=== PATIENT | female | born 1980 | race Caucasian/White ===

== ENCOUNTER 2018-06-17 15:21 | Emergency (ER) | payer SELFPAY ==
--- NOTE | 2018-06-17 15:51 | ED Physician Documentation ---
Lower Extremity Problem - HISTORIAN Historian: patient - HPI Stated Complaint: Right Knee Pain Chief Complaint: Lower Extremity Problem Additional Information: Right knee pain x 2 weeks. Denies injury. 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 Has been taking 800 mg ibuprofen BID which relieves pain, but it comes back. Has taken warm baths w/o relief. Hasn't seen anyone. Weight has been up and down, but thinks she has gained weight recently. Unknown LNMP as she says they have been irregular since her weight begn to fluctuate. Her provider is in [place]. No other modifying factors or as sociated signs. - ROS CONST: no problems GI/: other (irregular periods) - PAST HX Past History: other (above) PE Risk Factors: hypertension Allergies/Adverse Reactions: Allergies Allergy/AdvReac Type Severity Reaction Status Date / Time No Known Allergies Allergy Unverified 06/17/18 15:33 Home Medications: Ambulatory Orders Medication Instructions Recorded Blood Pressure Medication 06/17/18 - SOCIAL HX Smoking History: non-smoker - FAMILY HX Family History: no significant history - VITAL SIGNS Vital Signs: Vital Signs Temp Pulse Resp BP Pulse Ox 98 F 82 18 124/65 98 06/17/18 15:25 06/17/18 15:25 06/17/18 15:25 06/17/18 15:25 06/17/18 15:25 - REVIEWED ASSESSMENTS Nursing Assessment Reviewed: Yes Vitals Reviewed: Yes Progress - Progress Progress: Urine HCG positive. No injury, so x-ray cancelled. Doesn't limp on departure. ED Results Lab/Radiology - Orders Orders: ED Orders Category Date Time Status KNEE 3 VIEWS [RAD] Stat Exams 06/17/18 Ordered URINE HCG [URINE HCG] Stat Lab 06/17/18 Uncollected Lower Extremity Problem - EXAM General Appearance: obese Hips: bilateral hip: no evidence of injury Legs: bilateral: no evidence of injury Knees: right: pain (to palpation ant medial knee at joint line), bilateral: normal inspection, normal range of motion (moves right knee about spontaneoulsy. Able to move knee for ligamentous testing), no evidence of injury Ankle: bilateral: normal inspection, no evidence of injury Foot: bilateral foot: normal inspection, no evidence of injury Neuro/Tendon: normal sensation, normal motor functions, normal tendon functions EENT: ENT inspection normal RESPIRATORY: no resp distress JOINT: antalgic gait VASCULAR: no vascular compromise NEURO/PSYCH: CN's nml as tested, motor nml, sensation nml Discharge Clincal Impression: Knee pain, right Qualifiers: Chronicity: acute Qualified Code(s): M25.561 - Pain in right knee Referrals: Primary Doctor,No [Primary Care Provider] - 2 Days Condition: Good Disposition: 01 HOME, SELF-CARE Decision to Admit: NO Decision Time: 16:04
[2018-06-17 16:16] VITALS: BP 120/68
== END 2018-06-17 16:15 | disposition home or self-care (01) ==
LOC: ED 15:21
DX: M25.561 Pain in right knee (principal)
CPT/HCPCS: 81025; 99282